=== PATIENT | male | born 1985 | race Caucasian/White ===

== ENCOUNTER 2018-04-25 21:08 | Emergency (ER) | payer MEDICAID, OTHER ==
[~2018-04-25] VITALS: Ht 653.8 cm; Wt 115.0 kg
[2018-04-25 21:55] VITALS: BP 156/85
== END 2018-04-25 21:57 ==
LOC: ER 21:09
DX: Z02.89 Encounter for other administrative examinations (principal); I10 Essential (primary) hypertension; F17.210 Nicotine dependence, cigarettes, uncomplicated
CPT/HCPCS: 99283